=== PATIENT | male | born 1960 | race Caucasian/White ===

== ENCOUNTER 2017-02-01 05:56 | Inpatient (IN) | payer OTHER ==
[~2017-02-01] VITALS: Ht 180.3 cm; Wt 96.7 kg
[~2017-02-01 05:56] MED LIST: NAPR500 PO; Z.0.NO CURRENT MEDS
[2017-02-01 06:01] VITALS: BP 140/68; PULSE 73; RESP 18; TEMP 98.6; O2SAT 94
[2017-02-01] MEDS ORDERED: ONDANSETRON HCL 4 MG/2 ML VIAL IV PUSH ONE (06:30)
[2017-02-01] MEDS ORDERED: MORPHINE SULFATE 4 MG/ML INJ IV PUSH ONE (06:30)
--- NOTE | 2017-02-01 06:40 | PD ---
HPI Chief Complaint: Abdominal Pain Time Seen by Provider: 05:58 Travel History International Travel<30 days: No Contact w/Intl Traveler<30days: No Traveled to known affect area: No History of Present Illness HPI The patient is a 56 year old male who presents to the [facility] emergency department with a history of abdominal pain that awoke him abruptly from sound sleep at 1 AM. The patient reports that since beginning to have the pain he's had nausea with vomiting 6 times. The patient reports that the pain is a gas- like sensation in the center of his abdomen. He denies having any diarrhea. He reports that he last moved his bowels yesterday. The patient was initially evaluated at the [facility] emergency department. The patient had laboratory studies done that were remarkable for a white count of 13.4 with an essentially unremarkable chemistry and a CT scan of the abdomen and pelvis done that reveals an abnormal cluster of loops of small bowel in the right lower quadrant which are distended and fluid-filled with associated mesenteric edema, given the image findings a surgical consultation is recommended. The physician at that facility spoke to regarding this patient's case. He recommended that the patient undergo a Gastrografin small bowel follow through series. As they do not do this at the other facility, the patient was transferred to this facility for further imaging. Upon the patient's arrival the patient reports that the pain is severe and at the same severity level as when he was initially evaluated at the other facility in spite of treatment with pain medication, nausea medication, and IV fluids. The patient has had another episode of vomiting en route to this facility by ambulance services. The patient denies any prior history of abdominal symptoms like this. He denies having any scrotal pain or edema. On review of systems otherwise, the patient denies any recent fevers, cough, congestion, neck pain, chest pain, shortness of breath, urinary symptoms, or neurologic symptoms. [facility] Past Medical History Narrative Medical The patient's past medical history is reportedly none. Past Surgical History Narrative Surgical The patient's past surgical history is significant for left eye surgery 30 years ago. Eye Surgery: Yes Social History Alcohol Use: No Tobacco Use: Yes (4-5 cigarettes per day) Substance Use: No Allergies-Medications (Allergen,Severity, Reaction): Coded Allergies: No Known Allergies (Verified , 8/29/17) Reported Meds & Prescriptions Reported Meds & Active Scripts Active No Active Prescriptions or Reported Medications Review of Systems Except as stated in HPI: all other systems reviewed are Neg General / Constitutional: No: Fever Eyes: No: Visual changes HENT: No: Headaches Cardiovascular: No: Chest Pain or Discomfort Respiratory: No: Shortness of Breath Gastrointestinal: Positive: Nausea, Vomiting, Abdominal Pain Genitourinary: No: Dysuria Musculoskeletal: No: Pain Skin: No Rash Neurologic: No: Weakness Psychiatric: No: Depression Endocrine: No: Polydipsia Hematologic/Lymphatic: No: Easy Bruising Physical Exam Narrative General: The patient is a well-developed well-nourished male, uncomfortable appearing on arrival, otherwise in no acute distress. Head and Neck exam: Head is normocephalic atraumatic. Eyes: EOMI, pupil on the right is reactive to light. Pupil on the left is irregular and not in the center of the iris related to his prior eye surgery. Nose: Midline septum with pink mucous membranes Mouth: Dentition unremarkable. Moist mucus membranes. Posterior oropharynx is not erythematous. No tonsillar hypertrophy. Uvula midline. Airway patent. Neck: No palpable lymphadenopathy. No nuchal rigidity. No thyromegaly. Cardiovascular: Regular rate and rhythm without murmurs, gallops, or rubs. Lungs: Clear to auscultation bilaterally. No wheezes, rhonchi, or rales. Abdomen: Soft, with tenderness on palpation that is generalized, no focal area of tenderness. No guarding, rebound, or rigidity. No tenderness specifically over McBurney's point. Negative Gillis's sign. Decreased bowel sounds are audible. Extremities: No clubbing, cyanosis, or edema. 2+ pulses in all 4 extremities. No calf tenderness on palpation. Back: No costovertebral angle tenderness to palpation. Neurologic Exam: Grossly nonfocal. Skin Exam: No rash noted. Intact skin that is warm and dry. Data Data Last Documented VS Vital Signs Date Time Temp Pulse Resp B/P (MAP) Pulse Ox O2 Delivery O2 Flow Rate FiO2 02/01/17 06:01 98.6 73 18 140/68 (92) 94 Orders Orders Small Bowel Series W/Gastrogra (02/01/17 ) Morphine Inj (Morphine Inj) (02/01/17 06:30) Ondansetron Inj (Zofran Inj) (02/01/17 06:30) Vital Signs (Adult) NEIL.Q4H (02/01/17 06:18) Activity Bed Rest With Brp (02/01/17 06:18) Diet Npo (02/01/17 Breakfast) Insert Ng Tube (02/01/17 06:17) Admit Order (Ed Use Only) (02/01/17 06:17) Consult General Surgery (02/01/17 ) MDM Medical Decision Making Medical Screen Exam Complete: Yes Emergency Medical Condition: Yes Medical Record Reviewed: Yes Differential Diagnosis Small bowel obstruction, versus ileus Narrative Course During the course of the patients emergency department visit, the patients history, examination, and differential diagnosis were reviewed with the patient. The patient had IV access obtained and blood work sent for analysis. A call was placed out to Dr. Cortes regarding this patient's case. As the patient continues to have recalcitrant pain and vomiting I discussed with him that I plan to admit the patient. He recommended that the patient be admitted to the hospitalist service. He also recommended that the Gastrografin small bowel follow through study be done. He recommended that a surgical consult be placed if the study is abnormal or if the patient has to have an NG tube placed. The patient was initially provided morphine formal grams IV, Zofran 4 mg IV. If the patient continues to have discomfort in spite of repeat dosing of pain medication the patient will have an NG tube placed. The patients laboratory studies were reviewed and remarkable for a white count of 13.4, hemoglobin 14.1, platelets 372 with 52 neutrophils, lymphocytes 28.6, monocytes 13.5. CMP is remarkable for a BUN of 14, creatinine 0.90, glucose 166 , LFTs within normal limits, CO2 26, troponin I less than 0.02, lipase 239. The patient's case is discussed with Dr. Colin who did agree to admit the patient to the [facility] hospitalist service. He recommended that a general surgical consultation be placed in the record. The patients results were discussed with the patient, including the plan of care. I explained that further testing and/ or monitoring is indicated based on the patients history, examination, and/ or laboratory findings. Therefore, I recommended admission for additional evaluation. The patient expressed understanding and was agreeable with this plan. The patient was admitted to the hospital in stable condition and sent to a bed under the care of the [facility] Hospitalist service. Physician Communication Physician Communication The patient's case is discussed with Dr. Cortes and Dr. Colin as discussed above in the ED course. Diagnosis Primary Impression: Intractable abdominal pain Additional Impression: Intractable vomiting with nausea Qualified Codes: R11.2 - Nausea with vomiting, unspecified Admitting Information Admitting Physician Requests: Admit Scripts No Active Prescriptions or Reported Meds Shanon Walhs MD Feb 01, 2017 06:40
[2017-02-01 07:17] VITALS: BP 132/70; PULSE 71; RESP 16; O2SAT 98
--- NOTE | 2017-02-01 09:17 | HHI.HP ---
HPI Service [facility] Hospitalists Primary Care Physician Unknown Admission Diagnosis Abdominal pain, r/o small bowel obstruction Chief Complaint: abdominal pain Travel History International Travel<30 Days: No Contact w/Intl Traveler <30 Da: No Traveled to Known Affected Are: No History of Present Illness Pt is a 56 y/o M, with NO past medical history, who presented to the [place] ER with c/o abdominal pain associated with n/v which began abruptly lastnight. Pt reports last BM yesterday. CT (02/01/17) showed dilated loops of small bowel. Pt continued to have difficulties with vomiting. NGT was placed. Case was discussed between the ER physician and General Surgery. Pt admitted to the Medical service. Gastrografin GI series ordered. General Surgery consulted. Review of Systems Constitutional: DENIES: Diaphoretic episodes, Fatigue, Fever, Weight gain, Weight loss, Chills, Dizziness, Change in appetite, Night Sweats Endocrine: DENIES: Heat/cold intolerance, Polydipsia, Polyuria, Polyphagia Eyes: DENIES: Blurred vision, Diplopia, Eye inflammation, Eye pain, Vision loss , Photosensitivity, Double Vision Ears, nose, mouth, throat: DENIES: Tinnitus, Hearing loss, Vertigo, Nasal discharge, Oral lesions, Throat pain, Hoarseness, Ear Pain, Running Nose, Epistaxis, Sinus Pain, Toothache, Odynophagia Respiratory: DENIES: Apneas, Cough, Snoring, Wheezing, Hemoptysis, Sputum production, Shortness of breath Cardiovascular: DENIES: Chest pain, Palpitations, Syncope, Dyspnea on Exertion , PND, Lower Extremity Edema, Orthopnea, Claudication Gastrointestinal: COMPLAINS OF: Abdominal pain, Nausea, Vomiting, See HPI, DENIES: Black stools, Bloody stools, BRB per rectum, Constipation, Diarrhea, GERD, Reflux, Difficulty Swallowing, Anorexia Genitourinary: DENIES: Urinary frequency, Urinary incontinence, Urgency, Hematuria, Dysuria, Nocturia Musculoskeletal: DENIES: Joint pain, Muscle aches, Stiffness, Joint Swelling, Back pain, Neck pain Integumentary: DENIES: Abnormal pigmentation, Nail changes, Pruritus, Rash Hematologic/lymphatic: DENIES: Bruising, Lymphadenopathy Immunologic/allergic: DENIES: Eczema, Urticaria Neurologic: DENIES: Abnormal gait, Headache, Localized weakness, Paresthesias, Seizures, Speech Problems, Tremor, Poor Balance Psychiatric: DENIES: Anxiety, Confusion, Mood changes, Depression, Hallucinations, Agitation, Suicidal Ideation, Homicidal Ideation, Delusions, History of Bipolar, History of Schizophrenia Past Family Social History Past Medical History None Past Surgical History None Reported Medications Reported Meds & Active Scripts Active No Active Prescriptions or Reported Medications Allergies: Coded Allergies: No Known Allergies (Verified , 02/01/17) Family History Non-contributory Social History - No etoh - No tobacco - No illicit street drugs Physical Exam Vital Signs Vital Signs Date Time Temp Pulse Resp B/P (MAP) Pulse Ox O2 Delivery O2 Flow Rate FiO2 02/01/17 07:17 71 16 132/70 (90) 98 Room Air 02/01/17 06:01 98.6 73 18 140/68 (92) 94 Physical Exam GENERAL: This is a well-nourished, well-developed patient, in no apparent distress. SKIN: No rashes, ecchymoses or lesions. Cool and dry. HEAD: Atraumatic. Normocephalic. No temporal or scalp tenderness. EYES: Pupils equal round and reactive. Extraocular motions intact. No scleral icterus. No injection or drainage. ENT: Nose without bleeding, purulent drainage or septal hematoma. Throat without erythema, tonsillar hypertrophy or exudate. Uvula midline. Airway patent. NECK: Trachea midline. No JVD or lymphadenopathy. Supple, nontender, no meningeal signs. CARDIOVASCULAR: Regular rate and rhythm without murmurs, gallops, or rubs. RESPIRATORY: Clear to auscultation. Breath sounds equal bilaterally. No wheezes , rales, or rhonchi. GASTROINTESTINAL: Abdomen soft, non-tender, nondistended. No hepato-splenomegaly , or palpable masses. No guarding. MUSCULOSKELETAL: Extremities without clubbing, cyanosis, or edema. No joint tenderness, effusion, or edema noted. No calf tenderness. Negative Homans sign bilaterally. NEUROLOGICAL: Awake and alert. Cranial nerves II through XII intact. Motor and sensory grossly within normal limits. Five out of 5 muscle strength in all muscle groups. Normal speech. Imaging CT abd (02/01/17) --> dilated loops of small bowel Septic Shock Reassessment Heart: Regular rate and rhythm Lungs: Clear Skin: Warm Peripheral Pulses: Bounding Right Radial Bounding Left Radial Bounding Right Popliteal Bounding Left Popliteal Bounding Right Dorsalis Pedis Bounding Left Dorsalis Pedis Bounding Right Posterior Tibial Bounding Left Posterior Tibial Capillary Refill: Brisk Caprini VTE Risk Assessment Caprini VTE Risk Assessment: No/Low Risk (score <= 1) Caprini Risk Assessment Model Point Value = 1 Point Value = 2 Point Value = 3 Point Value = 5 Age 41-60 Minor surgery BMI > 25 kg/m2 Swollen legs Varicose veins or History of unexplained or recurrent spontaneous Oral contraceptives or hormone replacement Sepsis (< 1 month) Serious lung disease, including pneumonia (< 1 month) Abnormal pulmonary function Acute myocardial infarction Congestive heart failure (< 1 month) History of inflammatory bowel disease Medical patient at bed rest Age 61-74 Arthroscopic surgery Major open surgery (> 45 min) Laparoscopic surgery (> 45 min) Malignancy Confined to bed (> 72 hours) Immobilizing plaster cast Central venous access Age >= 75 History of VTE Family history of VTE Factor V Leiden Prothrombin [id number] Lupus anticoagulant Anticardiolipin antibodies Elevated serum homocysteine Heparin-induced thrombocytopenia Other congenital or acquired thrombophilia Stroke (< 1 month) Elective arthroplasty Hip, pelvis, or leg fracture Acute spinal cord injury (< 1 month) Prophylaxis Regimen Total Risk Factor Score Risk Level Prophylaxis Regimen 0-1 Low Early ambulation 2 Moderate Order ONE of the following: *Sequential Compression Device (SCD) *Heparin 5000 units SQ BID 3-4 Higher Order ONE of the following medications: *Heparin 5000 units SQ TID *Enoxaparin/Lovenox 40 mg SQ daily (WT < 150 kg, CrCl > 30 mL/min) *Enoxaparin/Lovenox 30 mg SQ daily (WT < 150 kg, CrCl > 10-29 mL/min) *Enoxaparin/Lovenox 30 mg SQ BID (WT < 150 kg, CrCl > 30 mL/min) AND/OR *Sequential Compression Device (SCD) 5 or more Highest Order ONE of the following medications: *Heparin 5000 units SQ TID (Preferred with Epidurals) *Enoxaparin/Lovenox 40 mg SQ daily (WT < 150 kg, CrCl > 30 mL/min) *Enoxaparin/Lovenox 30 mg SQ daily (WT < 150 kg, CrCl > 10-29 mL/min) *Enoxaparin/Lovenox 30 mg SQ BID (WT < 150 kg, CrCl > 30 mL/min) AND *Sequential Compression Device (SCD) Assessment and Plan Problem List: (1) Intractable vomiting with nausea ICD Codes: R11.2 - Nausea with vomiting, unspecified Status: Acute Plan: - 56 y/o M presented to the ER (02/01/17) with c/o abrupt onset of abdominal pain with associated n/v - Pt has no previous PMH or PSH - Pt's last BM was day prior to admission - CT abd/pelvis (02/01/17) showed dilated loops of small bowel - NGT placed - NPO - obtain Gastrografin GI series - Await General Surgery consult - DVT prophylaxis - IV protonix - supportive care Physician Certification 2 Midnight Certification Type: Admission for Inpatient Services Order for Inpatient Services The services are ordered in accordance with Medicare regulations or non- Medicare payer requirements, as applicable. In the case of services not specified as inpatient-only, they are appropriately provided as inpatient services in accordance with the 2-midnight benchmark. Estimated LOS (days): 3 3 days is the estimated time the patient will need to remain in the hospital, assuming treatment plan goals are met and no additional complications. Post-Hospital Plan: Home Problem Qualifiers (1) Intractable vomiting with nausea: Qualified Codes: R11.2 - Nausea with vomiting, unspecified Anatoliy Alvares DO Feb 01, 2017 09:17
[2017-02-01] MEDS ORDERED: ONDANSETRON HCL 4 MG/2 ML VIAL IVP PRN (09:30)
[2017-02-01] MEDS ORDERED: NALOXONE HCL 0.4 MG/ML AMP IV PRN (09:30)
[2017-02-01] MEDS ORDERED: ACETAMINOPHEN 325 MG TAB PO PRN (09:30)
[2017-02-01] MEDS ORDERED: SODIUM CHLORIDE 0.9% FLUSH 10 ML FLUSH IV FLUSH PRN (09:30)
[2017-02-01] MEDS ORDERED: TEMAZEPAM 15 MG CAP PO PRN (09:30)
[2017-02-01] MEDS ORDERED: MAGNESIUM HYDROXIDE SUSP 30 ML CUP PO PRN (09:30)
--- NOTE | 2017-02-01 10:10 | RADRPT ---
EXAM DATE/TIME: 02/01/2017 09:28 [facility] COMPARISON: No previous studies available for comparison. INDICATIONS : Cough. MEDICAL HISTORY : None. SURGICAL HISTORY : None. ENCOUNTER: Initial ACUITY: 1 day PAIN SCORE: 0/10 LOCATION: Bilateral chest FINDINGS: A single view of the chest demonstrates the lungs to be symmetrically aerated without evidence of mas s, infiltrate or effusion. The cardiomediastinal contours are unremarkable. Osseous structures are intact. Nasogastric tube passes to the midline curls in the fundus of the stomach there CONCLUSION: No acute disease. Nasogastric tube terminating in the stomach Cedric Deng MD on February 01, 2017 at 10:08 Board Certified Radiologist. This report was verified electronically.
[2017-02-01 11:00] VITALS: BP 139/74; PULSE 77; RESP 16; O2SAT 98
[2017-02-01] MEDS: HYDROmorphone HCL PF 1 MG/ML VIAL IV PUSH PRN ×2 (13:08→19:50)
[2017-02-01] MEDS: ONDANSETRON HCL 4 MG/2 ML VIAL IV PUSH PRN ×2 (13:09→19:50)
[2017-02-01 13:10] VITALS: BP 144/71; PULSE 69; RESP 16; O2SAT 98
--- NOTE | 2017-02-01 14:21 | RADRPT ---
EXAM DATE/TIME: 02/01/2017 09:28 [facility] COMPARISON: No previous studies available for comparison. INDICATIONS : Obstruction, vomiting, abdomen pain. FLUORO TIME: 2.0 minutes IMAGE COUNT: 24 CONTRAST: Gastrolucian IMAGING TIME(S): 15 min, 30 min, 45 min, 1 hr, 2.5 hrs, 4 hrs MEDICAL HISTORY : None. SURGICAL HISTORY : None. ENCOUNTER: Initial ACUITY: 1 day PAIN SCORE: 6/10 LOCATION: Bilateral abdomen FINDINGS: Preliminary film is unremarkable. Contrast introduced per nasogastric tube The stomach is grossly unremarkable. Examination of the small bowel demonstrates normal mucosal pattern involving the jejunum and ileum. There is no evidence of mass or obstruction. No intraluminal filling defects are identified. Small bowel transit time is normal at 240 minutes. Fluoroscopy of the abdomen and terminal ileum demonstra clarice no abnormality. CONCLUSION: Unremarkable small bowel examination. Cedric Deng MD on February 01, 2017 at 14:17 Board Certified Radiologist. This report was verified electronically.
[2017-02-01 16:00] VITALS: BP 143/86; PULSE 76; RESP 20; TEMP 98.9; O2SAT 95
[2017-02-01] MEDS: SODIUM CHLORIDE 0.9% FLUSH 10 ML FLUSH IV FLUSH SCH (19:51)
[2017-02-01 20:00] VITALS: BP 139/71; PULSE 77; RESP 18; TEMP 99; O2SAT 91
[2017-02-02] VITALS: BP 136/74; PULSE 76; RESP 18; TEMP 98.9; O2SAT 92
[2017-02-02 04:00] VITALS: BP 141/71; PULSE 69; RESP 16; TEMP 98.3; O2SAT 97
[2017-02-02] MEDS: ONDANSETRON HCL 4 MG/2 ML VIAL IV PUSH PRN (07:35)
[2017-02-02 08:00] VITALS: BP 140/82; PULSE 73; RESP 16; TEMP 98.2; O2SAT 95
--- NOTE | 2017-02-02 09:05 | HHI.PR ---
Subjective Remarks Pt reports that last night after the NGT was clamped he drank 4 cups of liquids and then started having vomiting. The NGT was placed back to [facility]. He has currently about 800cc of clear liquids in the canister He had a watery BM last night Afebrile Pt feels more nauseated and distended today Passing some gas. Objective Vitals Vital Signs Date Time Temp Pulse Resp B/P (MAP) Pulse Ox O2 Delivery O2 Flow Rate FiO2 02/02/17 04:00 98.3 69 16 141/71 (94) 97 02/02/17 00:00 98.9 76 18 136/74 (94) 92 02/01/17 20:00 99.0 77 18 139/71 (93) 91 02/01/17 16:00 98.9 76 20 143/86 (105) 95 02/01/17 14:40 4 02/01/17 13:10 69 16 144/71 (95) 98 02/01/17 11:00 77 16 139/74 (95) [address] abd (02/01/17) --> dilated loops of small bowel Last Impressions Chest X-Ray 02/01/17 0917 Signed Impressions: Service Date/Time: Wednesday, February 01, 2017 09:28 - CONCLUSION: No acute disease. Nasogastric tube terminating in the stomach Cedric Deng MD Small Bowel X-Ray 02/01/17 0000 Signed Impressions: Service Date/Time: Wednesday, February 01, 2017 09:28 - CONCLUSION: Unremarkable small bowel examination. Cedric Deng MD Objective Remarks General: NAD, AAOx3 Chest: CTA Cardiac: Regular Abd: +BS, upper abdomen is somewhat distended and semi-firm but the lower abdomen is softer and less distended Ext: No edema A/P Problem List: (1) Intractable vomiting with nausea ICD Codes: R11.2 - Nausea with vomiting, unspecified Status: Acute Plan: - 56 y/o M presented to the ER (02/01/17) with c/o abrupt onset of abdominal pain with associated n/v - Pt has no previous PMH or PSH - Pt's last BM was day prior to admission - CT abd/pelvis (02/01/17) showed dilated loops of small bowel - SBFT (02/01) --> Unremarkable small bowel examination. - Pt had NGT clamped yesterday and immediately started vomiting per the nurse and the NGT was placed back to [facility]. He has had about 800cc of outpt from NGT overnight and this morning but he has been drinking clear liquids. - Make NPO except meds and ice chips - Nursing staff also noted that he had a watery BM last night. - Cont. NGT to [facility] - KUB today - General Surgery is consulted - DVT prophylaxis - IV Protonix - Cont. Zofran Q4H PRN - Add Simethicone 125mg Q8H - supportive care Assessment and Plan Patient examined. Assessment and plan formulated with Mera STAUFFER-Kermit. I agree with the above. - Case d/w General Surgery, Dr. Lozano (02/02/17) - pt had BM, negative SBFT. No obstruction - GI consult obtained - PPI, Cipro, and flagyl added to treatment regimen - Pt underwent EGD with Dr. Pond (02/02/17), biopsy results pending Problem Qualifiers (1) Intractable vomiting with nausea: Qualified Codes: R11.2 - Nausea with vomiting, unspecified Mera Lee Feb 02, 2017 09:05 Anatoliy Alvares DO Feb 03, 2017 00:03
--- NOTE | 2017-02-02 10:35 | RADRPT ---
EXAM DATE/TIME: 02/02/2017 09:01 [facility] COMPARISON: No previous studies available for comparison. INDICATIONS : Evaluate for obstruction. MEDICAL HISTORY : Small bowel obstruction. SURGICAL HISTORY : None. ENCOUNTER: Subsequent ACUITY: 3 days PAIN SCORE: 6/10 LOCATION: Bilateral Abdomen. FINDINGS: Nasogastric tube is across the GE junction. Radiopaque contrast is throughout the colon into the rec jag. Minimal small bowel dilatation is present. CONCLUSION: There is no evidence for complete obstruction. Small bowel contrast is in the colon. Rahul Villatoro MD FACR on February 02, 2017 at 10:33 Board Certified Radiologist. This report was verified electronically.
[2017-02-02 10:54] LABS: AUTOMATED NEUTROPHIL # 14.9 TH/MM3 (1.8-7.7); BASOPHIL % 0.2 % (0.0-2.0); HEMATOCRIT 44.3 % (39.0-51.0); HEMO FLAGS DIFF FINAL; LYMPH % 5.8 % (9.0-44.0); MEAN CELL VOLUME 91.6 FL (80.0-100.0); MEAN CORPUSCULAR HEMOGLOBIN 30.2 PG (27.0-34.0); MONO % 7.2 % (0.0-8.0); NEUT % 86.8 % (16.0-70.0); PLATELET COUNT 288 TH/MM3 (150-450); RED BLOOD COUNT 4.84 MIL/MM3 (4.50-5.90); WHITE BLOOD COUNT 17.2 TH/MM3 (4.0-11.0)
[2017-02-02 11:01] LABS: BICARBONATE 28.9 MEQ/L (21.0-32.0); MAGNESIUM 2.2 MG/DL (1.5-2.5); POTASSIUM 3.6 MEQ/L (3.5-5.1)
[2017-02-02] MEDS: SODIUM CHLORIDE 0.9% FLUSH 10 ML FLUSH IV FLUSH SCH ×2 (11:11→21:00)
[2017-02-02] MEDS: SIMETHICONE 125 MG CHEWABLE TAB PO SCH ×3 (11:11→22:53)
[2017-02-02] MEDS: SODIUM CHLOR 0.9% 1000 ML INJ 1,000 ML IV SCH ×2 (11:12→22:54)
[2017-02-02] MEDS: ONDANSETRON HCL 4 MG/2 ML VIAL IV PRN ×2 (11:18→22:53)
[2017-02-02 12:00] VITALS: BP 119/59; PULSE 64; RESP 16; TEMP 99.5; O2SAT 97
--- NOTE | 2017-02-02 12:03 | PD.CONS ---
HPI History of Present Illness This is a 56 year old male who presented to the emergency room in [place] yesterday for severe abdominal pain. CT scan abdomen and pelvis with IV contrast (02/01/17)----> abnormal clustered loops of small bowel in the right lower quadrant which are distended and fluid-filled and with associated mesenteric edema. Given that the bowel entering and exiting this cluster of small bowel appears decompressed this may represent a closed loop obstruction. Therefore, suggest surgical consultation. Nonacute findings include small hiatal hernia and 3 mm left lower lobe pulmonary nodule. NGT was placed to [facility] and the patient was transferred to [facility] for surgical evaluation. He was seen by Dr. Dietz and he underwent a small bowel series with gastrografin (02/01/17) unremarkable small bowel examination. KUB (02/02/17)---- > there is no evidence for complete obstruction. Small bowel contrast is in the colon. GI was consulted for further evaluation of nausea and vomiting. He reports that he was in his normal state of health up until yesterday at 1am, when he woke up with severe abdominal pain. He states that this is diffuse severe aching pain with associated nausea/vomiting of bilious material. He denies any hematemesis. He denies any bloating. He denies any constipation and reports that he passed a stool this morning. His symptoms are aggravated by po intake. He denies any fevers or chills. He denies any sick contacts, suspicious food, recent travel, or prior abdominal surgeries. (Lyndsay Reid) [facility] Past Medical History Denies Past Surgical History Denies (Lyndsay Reid) Coded Allergies: No Known Allergies (Verified , 02/01/17) Medications Allergies Coded Allergies Type Severity Reaction Last Updated Verified No Known Allergies 02/01/17 Yes Active Scripts Medications Dose Route/Sig Max Daily Dose Days Date Category No Active Prescriptions or Reported Medications Rx Family History Mother had some type of female cancer ? ovarian or uterine Father had lung cancer Social History Smokes 5-6 cigarettes per day No etoh use. (Lyndsay Reid) Review of Systems Constitutional: COMPLAINS OF: Fatigue, DENIES: Fever, Weight loss, Chills, Change in appetite Respiratory: DENIES: Cough Cardiovascular: DENIES: Chest pain Gastrointestinal: COMPLAINS OF: Abdominal pain, Nausea, Vomiting, DENIES: Black stools, Bloody stools, Constipation, Diarrhea, Swelling of Abdomen, Heartburn, Hematemesis Musculoskeletal: DENIES: Back pain Integumentary: DENIES: Abnormal pigmentation Hematologic/lymphatic: DENIES: Bruising Neurologic: DENIES: Headache Psychiatric: DENIES: Confusion (Lyndsay ReidP) GI Exam Vitals I&O Vital Signs Date Time Temp Pulse Resp B/P (MAP) Pulse Ox O2 Delivery O2 Flow Rate FiO2 02/02/17 08:00 98.2 73 16 140/82 (101) 95 02/02/17 04:00 98.3 69 16 141/71 (94) 97 02/02/17 00:00 98.9 76 18 136/74 (94) 92 02/01/17 20:00 99.0 77 18 139/71 (93) 91 02/01/17 16:00 98.9 76 20 143/86 (105) 95 02/01/17 14:40 4 02/01/17 13:10 69 16 144/71 (95) 98 I/O 02/01/17 02/01/17 02/01/17 02/02/17 02/02/17 02/02/17 07:00 15:00 23:00 07:00 15:00 23:00 Output Total 400 ml Balance -400 ml Gastric Drainage Total 400 ml # Voids 1 1 Imaging Last Impressions Abdomen X-Ray 02/02/17 0000 Signed Impressions: Service Date/Time: Thursday, February 02, 2017 09:01 - CONCLUSION: There is no evidence for complete obstruction. Small bowel contrast is in the colon. Rahul Villatoro MD FACR Chest X-Ray 02/01/1717 Signed Impressions: Service Date/Time: Wednesday, February 01, 2017 09:28 - CONCLUSION: No acute disease. Nasogastric tube terminating in the stomach Cedric Deng MD Small Bowel X-Ray 02/01/17 0000 Signed Impressions: Service Date/Time: Wednesday, February 01, 2017 09:28 - CONCLUSION: Unremarkable small bowel examination. Cedric Deng MD Laboratory Test 02/02/17 09:40 White Blood Count 17.2 TH/MM3 Red Blood Count 4.84 MIL/MM3 Hemoglobin 14.6 GM/DL Hematocrit 44.3 % Mean Corpuscular Volume 91.6 FL Mean Corpuscular Hemoglobin 30.2 PG Mean Corpuscular Hemoglobin Concent 33.0 % Red Cell Distribution Width 14.0 % Platelet Count 288 TH/MM3 Mean Platelet Volume 9.1 FL Neutrophils (%) (Auto) 86.8 % Lymphocytes (%) (Auto) 5.8 % Monocytes (%) (Auto) 7.2 % Eosinophils (%) (Auto) 0.0 % Basophils (%) (Auto) 0.2 % Neutrophils # (Auto) 14.9 TH/MM3 Lymphocytes # (Auto) 1.0 TH/MM3 Monocytes # (Auto) 1.2 TH/MM3 Eosinophils # (Auto) 0.0 TH/MM3 Basophils # (Auto) 0.0 TH/MM3 CBC Comment DIFF FINAL Differential Comment Blood Urea Nitrogen 17 MG/DL Creatinine 0.96 MG/DL Random Glucose 112 MG/DL Calcium Level 8.4 MG/DL Magnesium Level 2.2 MG/DL Sodium Level 140 MEQ/L Potassium Level 3.6 MEQ/L Chloride Level 104 MEQ/L Carbon Dioxide Level 28.9 MEQ/L Anion Gap 7 MEQ/L Estimat Glomerular Filtration Rate 82 ML/MIN Physical Examination HEENT: Normocephalic; atraumatic; no jaundice. CHEST: CTA CARDIAC: RRR. ABDOMEN: Soft, nondistended, nontender; no hepatosplenomegaly; bowel sounds are present in all four quadrants. NGT to [facility] EXTREMITIES: No clubbing, cyanosis, or edema. SKIN: Normal; no rash; no jaundice. 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 (Lyndsay Reid) Assessment and Plan Plan ASSESSMENT: - Abdominal pain with n/v. Sudden onset yesterday am. Seen at [facility], CT scan abdomen and pelvis with IV contrast (02/01/17)----> abnormal clustered loops of small bowel in the right lower quadrant which are distended and fluid- filled and with associated mesenteric edema. Given that the bowel entering and exiting this cluster of small bowel appears decompressed this may represent a closed loop obstruction. Therefore, suggest surgical consultation. Nonacute findings include small hiatal hernia and 3 mm left lower lobe pulmonary nodule. NGT was placed to [facility] and the patient was transferred to [facility] for surgical evaluation. S/P GS evaluation. S/P SBFT (02/01/17) unremarkable small bowel examination. KUB (02/02/17)----> there is no evidence for complete obstruction. Small bowel contrast is in the colon. No fever/chills, Denies sick contacts, suspicious food, recent travel, or prior abdominal surgeries. WBC 17.2. (up from 13.4). Will plan for egd today. Add flagyl, cipro, ppi CBC in am. NPO - Leukocytosis. 13.4---> 17.2. T. Max 99.0. Will add flagyl, cipro. Get stool studies. PLAN: - Plan for egd today - Obtain consents - Add Cipro/Flagyl - Add Protonix - NPO - NGT to [facility] - CBC in am - Stool studies - Supportive care - Further recommendations to follow based on results of above - Pt seen and examined by Dr. Pond and myself and this note is written on his behalf (Lyndsay Reid) Physician Comments Seen and examined,plan as above, will arrange for EGD today with small bowel inspection . Further recommendations to follow. (Jona Pond MD) Lyndsay Reid Feb 02, 2017 12:03 Jona Pond MD Feb 02, 2017 12:59
[2017-02-02] MEDS ORDERED: CIPROFLOXACIN 400 MG PREMIX 200 ML IV SCH (13:00)
[2017-02-02] MEDS ORDERED: MIDAZOLAM HCL 2 MG/2 ML VIAL ONE (13:34)
[2017-02-02] MEDS ORDERED: DEXAMETHASONE SOD PHOS 4 MG/ML VIAL ONE (13:34)
[2017-02-02] MEDS ORDERED: FAMOTIDINE 20 MG/2 ML VIAL ONE (13:35)
[2017-02-02] MEDS ORDERED: ONDANSETRON HCL 4 MG/2 ML VIAL IV PUSH ONE (14:00)
[2017-02-02] MEDS ORDERED: SUCCINYLCHOLINE CHLORIDE 200 MG/10 ML VIAL IV ONE (14:00)
[2017-02-02] MEDS ORDERED: metroNIDAZOLE 500 MG INJ 100 ML IV SCH (14:00)
[2017-02-02] MEDS ORDERED: PROPOFOL 200 MG/20 ML AMP IV ONE (14:00)
--- NOTE | 2017-02-02 14:18 | GIPROC ---
[facility] [address] [facility]. [facility], [address] EGD PROCEDURE REPORT EXAM DATE: 02/02/2017 PATIENT NAME: Kenneth Bee MR #: [id number] BIRTHDATE: 1960 ATTENDING: Jona Pond MD ORDER #: [id number] HEAT TREAT OPERATOR: David Grande and Fatimah Carrasco STATUS: inpatient INDICATIONS: The patient is a 56 yr old male here for an EGD due to nausea and vomiting PROCEDURE PERFORMED: EGD w/ biopsy MEDICATIONS: None and Per Anesthesia. TOPICAL ANESTHETIC: none CONSENT: The patient understands the risks and benefits of the procedure and understands that these risks include, but are not limited to: sedation, allergic reaction, infection, perforation and/or bleeding. Alternative means of evaluation and treatment include, among others: physical exam, x-rays, and/or surgical intervention. The patient elects to proceed with this endoscopic procedure. medical equipment was checked for proper function. Hand hygiene and appropriate measures for infection prevention was taken. After the risks, benefits and alternatives of the procedure were thoroughly explained, Informed consent was verified, confirmed and timeout was successfully executed by the treatment team. The patient was anesthetized with topical anesthesia and the Pentax EG-[id number] endoscope was introduced through the mouth and advanced to the second portion of the duodenum. Retroflexion was performed and was normal The gastroscope was then slowly withdrawn and removed. ESOPHAGUS: There was LA Class A esophagitis noted. STOMACH: There was erythematous moderate gastritis in the entire examined stomach. Multiple biopsies were performed using cold forceps. Sample sent for histology. DUODENUM: The duodenal mucosa appeared normal in the bulb and second portion of the duodenum. ADVERSE EVENTS: There were no complications. IMPRESSIONS: 1. There was LA Class A esophagitis noted 2. There was erythematous gastritis in the entire examined stomach; multiple biopsies were performed 3. Normal duodenal mucosa in the bulb and second portion of the duodenum 4. Retroflexion was performed and was normal RECOMMENDATIONS: 1. Await biopsy results. Biopsy results will not be ready for 7-10 days. If you don't hear from us in two weeks, call our office for biopsy results. 2. Continue PPI PATIENT CONDITION: stable DISPOSITION: Observation REPEAT EXAM: NONE Jona Pond MD eSigned: Jona Pond MD 02/02/2017 2:17 PM cc: PATIENT NAME: Kenneth Bee MR#: [id number]
[2017-02-02] MEDS ORDERED: DO NOT ADM ANY ANTICOAGULANT DRUGS PRN (14:21)
[2017-02-02] MEDS ORDERED: LACTATED RINGER'S 1000 ML INJ 1,000 ML IV ONE (14:27)
[2017-02-02] MEDS ORDERED: *RESP: ALBUTEROL 2.5 MG/3 ML NEB (PRN) PERIprocedural Use ONLY NEB ONE (14:42)
[2017-02-02] MEDS: PANTOPRAZOLE SODIUM 40 MG VIAL IV PUSH SCH (15:58)
[2017-02-02 16:00] VITALS: BP 119/68; PULSE 76; RESP 16; TEMP 99.5; O2SAT 95
[2017-02-02] MEDS: CIPROFLOXACIN 400 MG PREMIX 200 ML IV SCH (16:03)
[2017-02-02] MEDS: metroNIDAZOLE 500 MG INJ 100 ML IV SCH ×2 (16:03→22:52)
--- NOTE | 2017-02-02 16:43 | EKG ---
Date Performed: 02/01/2017 Time Performed: 11:03:56 PTAGE: 56 years EKG: Sinus rhythm NORMAL ECG NO PREVIOUS TRACING DOCTOR: Natalie Gasca Interpretating Date/Time 02/02/2017 16:39:21
[2017-02-02 20:00] VITALS: BP 101/56; PULSE 71; RESP 18; TEMP 99.2; O2SAT 95
[2017-02-02] MEDS ORDERED: TEMAZEPAM 15 MG CAP PO PRN (22:15)
[2017-02-03 04:00] VITALS: BP 130/75; PULSE 73; RESP 18; TEMP 98.6; O2SAT 96
[2017-02-03] MEDS: CIPROFLOXACIN 400 MG PREMIX 200 ML IV SCH ×2 (05:39→18:54)
[2017-02-03] MEDS: SIMETHICONE 125 MG CHEWABLE TAB PO SCH ×3 (05:40→22:00)
[2017-02-03 07:41] LABS: BASOPHIL # 0.1 TH/MM3 (0-0.2); BASOPHIL % 0.3 % (0.0-2.0); EOSINOPHIL # 0.1 TH/MM3 (0-0.4); EOSINOPHIL % 0.4 % (0.0-4.0); HEMATOCRIT 40.5 % (39.0-51.0); HEMO FLAGS DIFF FINAL; LYMPH % 10.8 % (9.0-44.0); LYMPHOCYTE # 1.6 TH/MM3 (1.0-4.8); MEAN CELL VOLUME 91.5 FL (80.0-100.0); MEAN CORPUSCULAR HEMOGLOBIN 29.9 PG (27.0-34.0); MEAN CORPUSCULAR HGB CONC 32.7 % (32.0-36.0); MONO % 9.3 % (0.0-8.0); NEUT % 79.2 % (16.0-70.0); PLATELET COUNT 280 TH/MM3 (150-450); RED BLOOD COUNT 4.43 MIL/MM3 (4.50-5.90); WHITE BLOOD COUNT 15.2 TH/MM3 (4.0-11.0)
[2017-02-03 08:00] VITALS: BP 113/70; PULSE 69; RESP 21; TEMP 98.6; O2SAT 96
--- NOTE | 2017-02-03 08:31 | HHI.PR ---
Subjective Remarks Pt had EGD on 02/02 with noted gastritis NGT was removed yesterday No vomiting, some nausea No BM overnight Objective Vitals Vital Signs Date Time Temp Pulse Resp B/P (MAP) Pulse Ox O2 Delivery O2 Flow Rate FiO2 02/03/17 04:00 98.6 73 18 130/75 (93) 96 02/02/17 20:00 99.2 71 18 101/56 (71) 95 02/02/17 16:00 99.5 76 16 119/68 (85) 95 02/02/17 15:15 99.2 69 18 127/60 (82) 91 Nasal Cannula 2 02/02/17 15:00 75 18 135/70 (91) 92 Nasal Cannula 2 02/02/17 14:45 79 18 134/63 (86) 97 Nasal Cannula 2 02/02/17 14:30 112 18 158/72 (100) 97 Nasal Cannula 2 02/02/17 14:27 98.7 97 18 115/79 (91) 97 Simple Mask 10 02/02/17 12:00 99.5 64 16 119/59 (79) 97 Result Diagram: 02/03/17 0651 02/02/17 0940 Other Results Laboratory Tests Test 02/02/17 09:40 02/03/17 06:51 White Blood Count 17.2 TH/MM3 15.2 TH/MM3 Red Blood Count 4.84 MIL/MM3 4.43 MIL/MM3 Hemoglobin 14.6 GM/DL 13.2 GM/DL Hematocrit 44.3 % 40.5 % Mean Corpuscular Volume 91.6 FL 91.5 FL Mean Corpuscular Hemoglobin 30.2 PG 29.9 PG Mean Corpuscular Hemoglobin Concent 33.0 % 32.7 % Red Cell Distribution Width 14.0 % 14.0 % Platelet Count 288 TH/MM3 280 TH/MM3 Mean Platelet Volume 9.1 FL 8.4 FL Neutrophils (%) (Auto) 86.8 % 79.2 % Lymphocytes (%) (Auto) 5.8 % 10.8 % Monocytes (%) (Auto) 7.2 % 9.3 % Eosinophils (%) (Auto) 0.0 % 0.4 % Basophils (%) (Auto) 0.2 % 0.3 % Neutrophils # (Auto) 14.9 TH/MM3 12.0 TH/MM3 Lymphocytes # (Auto) 1.0 TH/MM3 1.6 TH/MM3 Monocytes # (Auto) 1.2 TH/MM3 1.4 TH/MM3 Eosinophils # (Auto) 0.0 TH/MM3 0.1 TH/MM3 Basophils # (Auto) 0.0 TH/MM3 0.1 TH/MM3 CBC Comment DIFF FINAL DIFF FINAL Differential Comment Blood Urea Nitrogen 17 MG/DL Creatinine 0.96 MG/DL Random Glucose 112 MG/DL Calcium Level 8.4 MG/DL Magnesium Level 2.2 MG/DL Sodium Level 140 MEQ/L Potassium Level 3.6 MEQ/L Chloride Level 104 MEQ/L Carbon Dioxide Level 28.9 MEQ/L Anion Gap 7 MEQ/L Estimat Glomerular Filtration Rate 82 ML/MIN Imaging Last Impressions Abdomen X-Ray 02/02/17 0000 Signed Impressions: Service Date/Time: Thursday, February 02, 2017 09:01 - CONCLUSION: There is no evidence for complete obstruction. Small bowel contrast is in the colon. Rahul Villatoro MD FACR Chest X-Ray 02/01/17 0917 Signed Impressions: Service Date/Time: Wednesday, February 01, 2017 09:28 - CONCLUSION: No acute disease. Nasogastric tube terminating in the stomach Cedric Deng MD Small Bowel X-Ray 02/01/17 0000 Signed Impressions: Service Date/Time: Wednesday, February 01, 2017 09:28 - CONCLUSION: Unremarkable small bowel examination. Cedric Deng MD CT abd (02/01/17) --> dilated loops of small bowel Objective Remarks General: NAD, AAOx3 Chest: CTA Cardiac: Regular Abd: +BS, upper abdomen is somewhat distended and semi-firm but the lower abdomen is softer and less distended Ext: No edema A/P Problem List: (1) Intractable vomiting with nausea ICD Codes: R11.2 - Nausea with vomiting, unspecified Status: Acute Plan: - 56 y/o M presented to the ER (02/01/17) with c/o abrupt onset of abdominal pain with associated n/v - Pt has no previous PMH or PSH - Pt's last BM was day prior to admission - CT abd/pelvis (02/01/17) showed dilated loops of small bowel - SBFT (02/01) --> Unremarkable small bowel examination. - Pt had NGT clamped yesterday and immediately started vomiting per the nurse and the NGT was placed back to [facility]. He has had about 800cc of outpt from NGT overnight and this morning but he has been drinking clear liquids. - Make NPO except meds and ice chips - Nursing staff also noted that he had a watery BM last night. - Cont. NGT to [facility] - KUB (02/02) --> There is no evidence for complete obstruction. Small bowel contrast is in the colon. - General Surgery is following - GI is following - PPI, Cipro, and Flagyl added on 02/02 - Pt underwent evaluation with EGD with Dr. Pond (02/02/17) --> gastritis. biopsy results pending - Trial of clear liquids - DVT prophylaxis - IV Protonix - Cont. Zofran Q4H PRN - Cont. Simethicone 125mg Q8H - supportive care Assessment and Plan Patient examined. Assessment and plan formulated with Mera Lee PA-C. I agree with the above. NGT removed with EGD Pt denies any further vomiting. Pt had some nausea this AM which improved with zofran. Pt admits to smoking marijuana with recent addition of liquid THC, but denies previous issues with N/V. I did recommend marijuana cessation. Will advance diet to clears and observe. Problem Qualifiers (1) Intractable vomiting with nausea: Qualified Codes: R11.2 - Nausea with vomiting, unspecified Mera Lee Feb 03, 2017 08:31 Anatoliy Alvares DO Feb 03, 2017 09:52
[2017-02-03] MEDS: metroNIDAZOLE 500 MG INJ 100 ML IV SCH ×2 (08:40→17:55)
[2017-02-03] MEDS: SODIUM CHLORIDE 0.9% FLUSH 10 ML FLUSH IV FLUSH SCH ×2 (08:40→20:54)
[2017-02-03] MEDS: PANTOPRAZOLE SODIUM 40 MG VIAL IV PUSH SCH (08:40)
--- NOTE | 2017-02-03 10:27 | HHI.GIFU ---
Subjective Remarks Feeling much better, no more N/V and requesting food. Objective Vitals I&O Vital Signs Date Time Temp Pulse Resp B/P (MAP) Pulse Ox O2 Delivery O2 Flow Rate FiO2 02/03/17 08:00 98.6 69 21 113/70 (84) 96 02/03/17 04:00 98.6 73 18 130/75 (93) 96 02/02/17 20:00 99.2 71 18 101/56 (71) 95 02/02/17 16:00 99.5 76 16 119/68 (85) 95 02/02/17 15:15 99.2 69 18 127/60 (82) 91 Nasal Cannula 2 02/02/17 15:00 75 18 135/70 (91) 92 Nasal Cannula 2 02/02/17 14:45 79 18 134/63 (86) 97 Nasal Cannula 2 02/02/17 14:30 112 18 158/72 (100) 97 Nasal Cannula 2 02/02/17 14:27 98.7 97 18 115/79 (91) 97 Simple Mask 10 02/02/17 12:00 99.5 64 16 119/59 (79) 97 I/O 02/02/17 02/02/17 02/02/17 02/03/17 02/03/17 02/03/17 06:59 14:59 22:59 06:59 14:59 22:59 Intake Total 504 ml 200 ml Output Total 400 ml 300 ml Balance -400 ml 204 ml 200 ml Intake Oral 0 ml IV Total 504 ml 200 ml Gastric Drainage Total 400 ml 300 ml # Voids 1 2 1 1 Laboratory Laboratory Tests Test 02/03/17 06:51 White Blood Count 15.2 Red Blood Count 4.43 Hemoglobin 13.2 Hematocrit 40.5 Mean Corpuscular Volume 91.5 Mean Corpuscular Hemoglobin 29.9 Mean Corpuscular Hemoglobin Concent 32.7 Red Cell Distribution Width 14.0 Platelet Count 280 Mean Platelet Volume 8.4 Neutrophils (%) (Auto) 79.2 Lymphocytes (%) (Auto) 10.8 Monocytes (%) (Auto) 9.3 Eosinophils (%) (Auto) 0.4 Basophils (%) (Auto) 0.3 Neutrophils # (Auto) 12.0 Lymphocytes # (Auto) 1.6 Monocytes # (Auto) 1.4 Eosinophils # (Auto) 0.1 Basophils # (Auto) 0.1 CBC Comment DIFF FINAL Differential Comment Physical Exam HEENT: Pupils round and reactive to light; normocephalic; atraumatic; no jaundice. Throat is clear. NECK: Neck is supple, no JVD, no lymphadenopathy. CHEST: Chest is clear to auscultation and percussion. CARDIAC: Regular rate and rhythm with no murmur gallop or rubs. ABDOMEN: Soft, nondistended, nontender; no hepatosplenomegaly; bowel sounds are present in all four quadrants. EXTREMITIES: No clubbing, cyanosis, or edema. SKIN: Normal; no rash; no jaundice. MANAGER DATA WAREHOUSE: No focal deficits; alert and oriented times three. Assessment and Plan Plan ASSESSMENT: - Gastritis and Esophagitis, ileus on presentation with Abdominal pain with n/ v. Sudden onset yesterday am. Seen at [facility], CT scan abdomen and pelvis with IV contrast (02/01/17)----> abnormal clustered loops of small bowel in the right lower quadrant which are distended and fluid- filled and with associated mesenteric edema. Given that the bowel entering and exiting this cluster of small bowel appears decompressed this may represent a closed loop obstruction. Therefore, suggest surgical consultation. Nonacute findings include small hiatal hernia and 3 mm left lower lobe pulmonary nodule. NGT was placed to [facility] and the patient was transferred to [facility] for surgical evaluation. S/P GS evaluation. S/P SBFT (02/01/17) unremarkable small bowel examination. KUB (02/02/17)----> there is no evidence for complete obstruction. Small bowel contrast is in the colon. No fever/chills, Denies sick contacts, suspicious food, recent travel, or prior abdominal surgeries. WBC 17.2. (up from 13.4). - Leukocytosis. 13.4---> 17.2. T. Max 99.0. Will add flagyl, cipro. Get stool studies. PLAN: - Clear liquid diet - Cipro/Flagyl - PPI orally - Stool studies - Supportive care - Further recommendations to follow based on results of above Jona Pond MD Feb 03, 2017 10:27
[2017-02-03 12:00] VITALS: BP 130/70; PULSE 65; RESP 20; TEMP 99.2; O2SAT 97
[2017-02-03 16:00] VITALS: BP 122/73; PULSE 77; RESP 21; TEMP 98.9; O2SAT 96
[2017-02-03 20:00] VITALS: BP 119/64; PULSE 63; RESP 16; TEMP 98; O2SAT 97
[2017-02-03] MEDS: SODIUM CHLOR 0.9% 1000 ML INJ 1,000 ML IV SCH (20:54)
[2017-02-03 21:22] LABS: C. DIFF EPI 027 PRESUMPTIVE NEGATIVE (NEGATIVE)
[2017-02-04] VITALS: BP 111/77; PULSE 65; RESP 16; TEMP 98.2; O2SAT 95
[2017-02-04] MEDS: metroNIDAZOLE 500 MG INJ 100 ML IV SCH ×3 (00:28→14:57)
[2017-02-04 04:00] VITALS: BP 124/78; PULSE 68; RESP 16; TEMP 98.2; O2SAT 96
[2017-02-04] MEDS: SIMETHICONE 125 MG CHEWABLE TAB PO SCH ×2 (05:05→14:00)
[2017-02-04] MEDS: CIPROFLOXACIN 400 MG PREMIX 200 ML IV SCH ×2 (05:05→17:00)
[2017-02-04 07:44] LABS: AUTOMATED NEUTROPHIL # 6.8 TH/MM3 (1.8-7.7); BASOPHIL # 0.1 TH/MM3 (0-0.2); BASOPHIL % 0.6 % (0.0-2.0); EOSINOPHIL # 0.3 TH/MM3 (0-0.4); HEMATOCRIT 39.8 % (39.0-51.0); HEMO FLAGS DIFF FINAL; LYMPH % 16.6 % (9.0-44.0); LYMPHOCYTE # 1.7 TH/MM3 (1.0-4.8); MEAN CELL VOLUME 91.6 FL (80.0-100.0); MEAN CORPUSCULAR HGB CONC 32.7 % (32.0-36.0); MONO % 11.8 % (0.0-8.0); PLATELET COUNT 271 TH/MM3 (150-450); RED BLOOD COUNT 4.34 MIL/MM3 (4.50-5.90); RED CELL DISTRIBUTION WIDTH 13.5 % (11.6-17.2); WHITE BLOOD COUNT 9.9 TH/MM3 (4.0-11.0)
[2017-02-04 08:00] VITALS: BP 128/73; PULSE 61; RESP 16; TEMP 98.2; O2SAT 95
[2017-02-04 08:06] LABS: BICARBONATE 30.2 MEQ/L (21.0-32.0); MAGNESIUM 1.9 MG/DL (1.5-2.5); POTASSIUM 3.6 MEQ/L (3.5-5.1)
[2017-02-04] MEDS: SODIUM CHLORIDE 0.9% FLUSH 10 ML FLUSH IV FLUSH SCH (09:41)
[2017-02-04] MEDS: PANTOPRAZOLE SODIUM 40 MG VIAL IV PUSH SCH (09:41)
--- NOTE | 2017-02-04 10:56 | HHI.PR ---
Subjective Remarks Pt had EGD on 02/02 with noted gastritis tolerating clear liquid diet- no further N/V diarrhea- reports 4 episodes of liquid brown stool no red blood or black tarry stool. positive flatus no abd pain Objective Vitals Vital Signs Date Time Temp Pulse Resp B/P (MAP) Pulse Ox O2 Delivery O2 Flow Rate FiO2 02/04/17 08:00 98.2 61 16 128/73 (91) 95 02/04/17 04:00 98.2 68 16 124/78 (93) 96 02/04/17 00:00 98.2 65 16 111/77 (88) 95 02/03/17 20:00 98.0 63 16 119/64 (82) 97 02/03/17 16:00 98.9 77 21 122/73 (89) 96 02/03/17 12:00 99.2 65 20 130/70 (90) 97 Result Diagram: 02/04/17 0703 02/04/17 0705 Imaging Last Impressions Abdomen X-Ray 02/02/17 0000 Signed Impressions: Service Date/Time: Thursday, February 02, 2017 09:01 - CONCLUSION: There is no evidence for complete obstruction. Small bowel contrast is in the colon. Rahul Villatoro MD FACR Chest X-Ray 02/01/17 0917 Signed Impressions: Service Date/Time: Wednesday, February 01, 2017 09:28 - CONCLUSION: No acute disease. Nasogastric tube terminating in the stomach Cedric Deng MD Small Bowel X-Ray 02/01/17 0000 Signed Impressions: Service Date/Time: Wednesday, February 01, 2017 09:28 - CONCLUSION: Unremarkable small bowel examination. Cedric Deng MD CT abd (02/01/17) --> dilated loops of small bowel Objective Remarks General: NAD, AAOx3 Chest: CTA Cardiac: Regular Abd: +BS, upper abdomen is somewhat distended and semi-firm but the lower abdomen is softer and less distended Ext: No edema A/P Problem List: (1) Intractable vomiting with nausea ICD Codes: R11.2 - Nausea with vomiting, unspecified Status: Acute Plan: - 56 y/o M presented to the ER (02/01/17) with c/o abrupt onset of abdominal pain with associated n/v - Pt has no previous PMH or PSH - Pt's last BM was day prior to admission - CT abd/pelvis (02/01/17) showed dilated loops of small bowel - SBFT (02/01) --> Unremarkable small bowel examination. - KUB (02/02) --> There is no evidence for complete obstruction. Small bowel contrast is in the colon. - General Surgery is following - GI is following - PPI, Cipro, and Flagyl added on 02/02 - Pt underwent evaluation with EGD with Dr. Pond (02/02/17) --> gastritis. biopsy results pending - Pt had NGT removed 02/02 - tolerating clear liquids diet will advance as tolerated - Reports liquid stool x 4 in the past 24 hours, C diff negative other stool studies obtained and pending - DVT prophylaxis - Protonix - Cont. Zofran Q4H PRN - Cont. Simethicone 125mg Q8H - supportive care Assessment and Plan Patient examined. Assessment and plan formulated with Kacy Mistry PA-C. I agree with the above. Problem Qualifiers (1) Intractable vomiting with nausea: Qualified Codes: R11.2 - Nausea with vomiting, unspecified Kacy Mistry Feb 04, 2017 10:56 Anatoliy Alvares DO Feb 05, 2017 01:27
[2017-02-04 12:00] VITALS: BP 130/71; PULSE 61; RESP 18; TEMP 98; O2SAT 97
[2017-02-04 16:00] VITALS: BP 125/68; PULSE 59; RESP 16; TEMP 98.9; O2SAT 95
[2017-02-04] MEDS ORDERED: CIPR-9 PO (16:25)
[2017-02-04] MEDS ORDERED: METR-1 PO (16:25)
[2017-02-04] MEDS ORDERED: PANT40TA3 PO (16:25)
--- NOTE | 2017-02-04 16:33 | HHI.DS ---
Discharge Summary Admission Date Feb 01, 2017 at 06:22 Discharge Date: Feb 04, 2017 Admitting Diagnosis Abdominal pain, r/o small bowel obstruction (1) Intractable vomiting with nausea ICD Codes: R11.2 - Nausea with vomiting, unspecified Status: Acute Consultants GI Dr. Pond General surgery Dr. Suman Dietz Procedures 02/02/17 EGD with biopsy Brief History Pt is a 56 y/o M, with NO past medical history, who presented to the [place] ER with c/o abdominal pain associated with n/v which began abruptly lastnight. Pt reports last BM yesterday. CT (02/01/17) showed dilated loops of small bowel. Pt continued to have difficulties with vomiting. NGT was placed. Case was discussed between the ER physician and General Surgery. Pt admitted to the Medical service. Gastrografin GI series ordered. General Surgery consulted. CBC/BMP: 02/04/17 0703 02/04/17 0705 Significant Findings Laboratory Tests Test 02/02/17 09:40 02/03/17 06:51 02/03/17 11:35 02/04/17 07:03 White Blood Count 17.2 TH/MM3 (4.0-11.0) 15.2 TH/MM3 (4.0-11.0) Neutrophils (%) (Auto) 86.8 % (16.0-70.0) 79.2 % (16.0-70.0) Lymphocytes (%) (Auto) 5.8 % (9.0-44.0) Neutrophils # (Auto) 14.9 TH/MM3 (1.8-7.7) 12.0 TH/MM3 (1.8-7.7) Monocytes # (Auto) 1.2 TH/MM3 (0-0.9) 1.4 TH/MM3 (0-0.9) 1.2 TH/MM3 (0-0.9) Random Glucose 112 MG/DL (74-106) Calcium Level 8.4 MG/DL (8.5-10.1) Estimat Glomerular Filtration Rate 82 ML/MIN (>89) Red Blood Count 4.43 MIL/MM3 (4.50-5.90) 4.34 MIL/MM3 (4.50-5.90) Monocytes (%) (Auto) 9.3 % (0.0-8.0) 11.8 % (0.0-8.0) Test 02/04/17 07:05 Calcium Level 7.8 MG/DL (8.5-10.1) Estimat Glomerular Filtration Rate 84 ML/MIN (>89) PE at Discharge General: NAD, AAOx3 Chest: CTA Cardiac: Regular Abd: +BS, upper abdomen is somewhat distended and semi-firm but the lower abdomen is softer and less distended Ext: No edema Hospital Course Intractable vomiting with nausea - 56 y/o M presented to the ER (02/01/17) with c/o abrupt onset of abdominal pain with associated n/v - Pt has no previous PMH or PSH - CT abd/pelvis (02/01/17) showed dilated loops of small bowel - SBFT (02/01) --> Unremarkable small bowel examination. - KUB (02/02) --> There is no evidence for complete obstruction. Small bowel contrast is in the colon. - General Surgery consulted - GI is followed while inpatient - Zofran Q4H was given PRN - PPI, Cipro, and Flagyl added on 02/02 - Pt underwent evaluation with EGD with Dr. Pond (02/02/17) --> gastritis. biopsy results pending - Pt had NGT removed 02/02 - Reports liquid stool x 4 in the past 24 hours, C diff negative other stool studies obtained and pending- no further diarrhea - DVT prophylaxis - Protonix - supportive care - diet advanced, patient discharged home once tolerating regular diet Pt Condition on Discharge: Stable Discharge Disposition: Discharge Home Discharge Instructions DIET: Follow Instructions for: As Tolerated, No Restrictions Activities you can perform: Regular-No Restrictions Follow up Referrals: Gastroenterology - 2 Weeks PCP Follow-up - [address] Chriss Ortiz New Medications: Ciprofloxacin (Cipro) 500 Mg Tab 500 MG PO BID for Infection, #9 TAB 0 Refills Metronidazole (Flagyl) 500 Mg Tab 500 MG PO TID for Infection, #13 TAB 0 Refills Pantoprazole (Pantoprazole) 40 Mg Tab 40 MG PO DAILY for Stomach, #30 TAB Additional Information Patient examined. Assessment and plan formulated with Kacy Mistry PA-C. I agree with the above. Pt to complete course of levaquin/flagyl No further marijuana Pt to f/u with PCP in 1 week f/u with GI in 3 weeks. Kacy Mistry Feb 04, 2017 16:33 Anatoliy Alvares DO Feb 05, 2017 01:29
--- NOTE | 2017-02-04 17:54 | HHI.GIFU ---
Subjective Remarks Pt resting in bed, says he is hungry. NO pain, n/v, bleeding. Did have some loose watery stool yesterday and this morning. Objective Vitals I&O Vital Signs Date Time Temp Pulse Resp B/P (MAP) Pulse Ox O2 Delivery O2 Flow Rate FiO2 02/04/17 16:00 98.9 59 16 125/68 (87) 95 02/04/17 12:00 98.0 61 18 130/71 (90) 97 02/04/17 08:00 98.2 61 16 128/73 (91) 95 02/04/17 04:00 98.2 68 16 124/78 (93) 96 02/04/17 00:00 98.2 65 16 111/77 (88) 95 02/03/17 20:00 98.0 63 16 119/64 (82) 97 I/O 02/03/17 02/03/17 02/03/17 02/04/17 02/04/17 02/04/17 07:00 15:00 23:00 07:00 15:00 23:00 Intake Total 120 ml 500 ml 1248 ml Output Total 200 ml Balance -80 ml 500 ml 1248 ml Intake Oral 120 ml 240 ml IV Total 500 ml 1008 ml Output Stool Total 200 ml # Voids 1 3 1 1 Laboratory Laboratory Tests Test 02/04/17 07:03 02/04/17 07:05 White Blood Count 9.9 Red Blood Count 4.34 Hemoglobin 13.0 Hematocrit 39.8 Mean Corpuscular Volume 91.6 Mean Corpuscular Hemoglobin 30.0 Mean Corpuscular Hemoglobin Concent 32.7 Red Cell Distribution Width 13.5 Platelet Count 271 Mean Platelet Volume 8.0 Neutrophils (%) (Auto) 68.0 Lymphocytes (%) (Auto) 16.6 Monocytes (%) (Auto) 11.8 Eosinophils (%) (Auto) 3.0 Basophils (%) (Auto) 0.6 Neutrophils # (Auto) 6.8 Lymphocytes # (Auto) 1.7 Monocytes # (Auto) 1.2 Eosinophils # (Auto) 0.3 Basophils # (Auto) 0.1 CBC Comment DIFF FINAL Differential Comment Blood Urea Nitrogen 14 Creatinine 0.94 Random Glucose 93 Calcium Level 7.8 Magnesium Level 1.9 Sodium Level 141 Potassium Level 3.6 Chloride Level 105 Carbon Dioxide Level 30.2 Anion Gap 6 Estimat Glomerular Filtration Rate 84 Date/Time Source Procedure Growth Status 02/03/17 11:35 Stool Stool Cryptosporidium Exam Pending Resulted 02/03/17 11:35 Stool Stool Stool Pus ([facility]NE[facility]) - Final FEW WBC'S Resulted 02/03/17 11:35 Stool Stool Giardia Antigen ([facility]) Pending Resulted Imaging Last Impressions Abdomen X-Ray 02/02/17 0000 Signed Impressions: Service Date/Time: Thursday, February 02, 2017 09:01 - CONCLUSION: There is no evidence for complete obstruction. Small bowel contrast is in the colon. Rahul Villatoro MD FACR Chest X-Ray 02/01/17 0917 Signed Impressions: Service Date/Time: Wednesday, February 01, 2017 09:28 - CONCLUSION: No acute disease. Nasogastric tube terminating in the stomach Cedric Deng MD Small Bowel X-Ray 02/01/17 0000 Signed Impressions: Service Date/Time: Wednesday, February 01, 2017 09:28 - CONCLUSION: Unremarkable small bowel examination. Cedric Deng MD Physical Exam HEENT: PERRL; atraumatic; no jaundice. CHEST: CTA CARDIAC: RRR ABDOMEN: Soft, nondistended, nontender; no hepatosplenomegaly; bowel sounds are present in all four quadrants. EXTREMITIES: No clubbing, cyanosis, or edema. SKIN: Normal; no rash; no jaundice. DESIGN INSERTER: No focal deficits; alert and oriented times three. Assessment and Plan Plan ASSESSMENT: - Gastritis and Esophagitis, ileus on presentation with Abdominal pain with n/ v. Sudden onset yesterday am. Seen at [facility], CT scan abdomen and pelvis with IV contrast (02/01/17)----> abnormal clustered loops of small bowel in the right lower quadrant which are distended and fluid- filled and with associated mesenteric edema. Given that the bowel entering and exiting this cluster of small bowel appears decompressed this may represent a closed loop obstruction. Therefore, suggest surgical consultation. Nonacute findings include small hiatal hernia and 3 mm left lower lobe pulmonary nodule. NGT was placed to [facility] and the patient was transferred to [facility] for surgical evaluation. S/P GS evaluation. S/P SBFT (02/01/17) unremarkable small bowel examination. KUB (02/02/17)----> there is no evidence for complete obstruction. Small bowel contrast is in the colon. No fever/chills, Denies sick contacts, suspicious food, recent travel, or prior abdominal surgeries. a/p EGD found esophagitis, gastritis path benign - Leukocytosis. 13.4---> 17.2. since normalized T. Max 99.0. Will add flagyl, cipro. stool neg enteric pathogens, cryptosporidium and giardia pending PLAN: - JEFF - cont PPI - f/u with GI as outpatient - Supportive care - okay to d/c from GI standpoint if tolerating regular diet This pt seen by myself and Dr Worthington and this note is written on his behalf Radha Ghosh Feb 04, 2017 17:54
[2017-02-05] MEDS ORDERED: PANTOPRAZOLE SOD 40 MG DELAYED RELEASE TAB PO SCH (09:00)
== END 2017-02-04 21:15 | disposition home or self-care (01) | DRG 390 ==
LOC: NEPC 05:56 → NEDA 06:22 → HOCB 15:03
PROVIDERS: ADMIT Hospitalist; ATTEND Hospitalist
PROC: 0DB68ZX Excision of Stomach, Via Natural or Artificial Opening Endoscopic, Diagnostic (ICD-10-PCS; principal; 2017-02-02 13:40)
DX: K56.7 Ileus, unspecified (principal); K20.9 Esophagitis, unspecified; R11.2 Nausea with vomiting, unspecified; K29.70 Gastritis, unspecified, without bleeding; F17.210 Nicotine dependence, cigarettes, uncomplicated; E66.9 Obesity, unspecified; Z68.29 Body mass index [BMI] 29.0-29.9, adult; F12.929 Cannabis use, unspecified with intoxication, unspecified; K44.9 Diaphragmatic hernia without obstruction or gangrene; R91.1 Solitary pulmonary nodule
CPT/HCPCS: 71010; 74000; 74177; 74250; 80048; 80053; 83690; 83735; 84484; 85025; 87205; 87328; 87329; 87493; 87506; 88305; 88312; 93005; 94664; 96361; 96374; 96375; 99285; C9113; J0330; J0744; J1100; J1170; J1885; J2250; J2270; J2405; J2765; J3010; J7030; J7120; J7613; Q9967